=== PATIENT | female | born 1980 | race Caucasian/White ===

== ENCOUNTER → 2018-05-02 11:59 | Outpatient (CLI) | payer BC, SELFPAY ==
[2018-05-02 14:24] LABS: Absolute Lymphocyte Count 1.29 X10^3/ul (0.83-4.51); Absolute Neutrophil Count 3.3 X10^3/uL (2.0-7.7); Basophil# 0.03 X10^3/uL; Basophil% 0.6 % (0-1); Eosinophil# 0.06 X10^3/uL; Eosinophils% 1.2 % (0-5); Hematocrit 41.4 % (37-47); Hemoglobin 13.9 g/dl (12.0-15.0); Lymphocyte # 1.29 X10^3/ul (4.0); Mean Corp Hgb Conc 33.6 g/gl (32-36); Mean Corpuscular Volume 92.4 fL (81-99); Mean Platelet Vol. 10.1 fl (6.2-12.0); Monocyte# 0.51 X10^3/uL; Monocyte% 9.9 % (0-10); Neutrophil # 3.26 X10^3/uL (2.7-7.7); Neutrophil % 63.1 % (47-70); Platelet Count 253 K/mm3 (150-450); RBC Distribution Width CV 11.9 % (11.6-14.6); RBC Distribution Width SD 39.4 fl (35.1-43.9); Red Blood Count 4.48 M/mm3 (4.2-5.4); White Blood Count 5.2 K/mm3 (4.4-11.0)
[2018-05-02 14:31] LABS: POSITIVE COUNT NO; POSITIVE DIFFERENTIAL NO; POSITIVE MORPHOLOGY NO
[2018-05-02 15:29] LABS: ALB/GLOB Ratio 1.1 RATIO (0.9-2.4); AST(SGOT) 18 U/L (15-37); Alanine Aminotransfer ALT/SGPT 26 U/L (13-56); Albumin, Serum 4.1 g/dL (3.2-5.0); Alkaline Phosphatase 57 U/L (45-117); Anion Gap 8 (5-15); BUN 13 mg/dL (7-18); BUN/Creat Ratio 15.1 RATIO (10-20); Calcium,Total 9.3 mg/dL (8.5-10.1); Chloride 105 mmol/L (98-107); Creatinine, Serum 0.86 mg/dL (0.55-1.02); EST Glomerular Filtration Rate 78 mL/min (>60); Est Glom Filt Rate - Afr Amer 95 mL/min (>60); Globulin 3.8 g/dL (2.2-4.2); Glucose 83 mg/dL (74-106); Potassium 4.5 mmol/L (3.5-5.1); Protein, Total 7.9 g/dL (6.4-8.2); Sodium Level 139 mmol/L (136-145); T4 Free Direct 0.97 ng/dL (0.76-1.46)
== END ==
PROVIDERS: Family Provider Family Medicine; PCP Family Medicine; Visit Provider Nurse Practitioner Family
DX: R63.5 Abnormal weight gain (principal); L70.0 Acne vulgaris; L71.0 Perioral dermatitis
CPT/HCPCS: 36415; 80053; 84439; 84443; 85025

== ENCOUNTER → 2022-08-10 | Outpatient (CLI) | payer BC, SELFPAY ==
[2022-08-10 10:56] LABS: Vitamin D,25 Hydroxy 34.3 ng/mL
[2022-08-10 11:09] LABS: Anion Gap 6 (5-15); BUN 11 mg/dL (7-18); BUN/Creat Ratio 14.4 RATIO (10-20); Calcium,Total 9.2 mg/dL (8.5-10.1); Chloride 106 mmol/L (98-107); Cholesterol 164 mg/dL (200); Creatinine, Serum 0.76 mg/dL (0.55-1.02); EST Glomerular Filtration Rate 88 mL/min (>60); Est Glom Filt Rate - Afr Amer 107 mL/min (>60); Glucose 96 mg/dL (74-106); High Density Lipoprotein 76 mg/dL; Potassium 3.9 mmol/L (3.5-5.1); Sodium Level 138 mmol/L (136-145); Thyroid Stim Hormone (TSH) 2.36 uIU/mL (0.358-3.74); Triglycerides 95 mg/dL; Very Low Density Lipoprotein 19 mg/dL (5-40)
== END | disposition home or self-care (01) ==
PROVIDERS: PCP Family Medicine; Visit Provider Family Medicine
DX: Z13.1 Encounter for screening for diabetes mellitus (principal); Z13.21 Encounter for screening for nutritional disorder; Z13.29 Encounter for screening for other suspected endocrine disorder; Z13.220 Encounter for screening for lipoid disorders
CPT/HCPCS: 36415; 80048; 80061; 82306; 84443

== ENCOUNTER 2022-08-22 08:16 | Outpatient (CLI) | payer BC, SELFPAY ==
--- NOTE | 2022-08-22 08:18 | BI_ITS ---
MAMMOGRAPHY - BILATERAL SCREENING REASON FOR EXAM: Female, 41 years old. Routine annual screening examination. PERTINENT HISTORY: Non-contributory. TECHNIQUE: Digital bilateral breast bhavin (3D mammographic acquisition) in the CC and MLO projections. 2-D mediolateral oblique (MLO) and craniocaudad (CC) views of both breasts were obtained. CAD: Full Field Digital Mammography with Computer Added Detection was performed. COMPARISON: None. Baseline examination. FINDINGS: Breast Composition: The breasts are heterogeneously dense, which may obscure small masses. There are no dominant masses or suspicious calcifications. No other significant abnormalities are identified. BI/SCRN MAMM (CAD)W/BHAVIN BILAT IMPRESSION: Negative screening mammogram. Yearly followup mammogram recommended. (A) ASSESSMENT CATEGORY: BIRADS Category 1: Negative. A letter regarding these results will be sent to the patient by the facility within 30 days. Approximately 10% of breast cancers are not detected by mammography. A normal mammogram should not delay biopsy of a clinically suspicious abnormality. [id number] Electronically Signed: Jude Valerio MD at 10:07 EST ,
== END 2022-08-22 23:59 | disposition home or self-care (01) ==
PROVIDERS: PCP Family Medicine; Referring Provider Family Medicine; Visit Provider Family Medicine
DX: Z12.31 Encounter for screening mammogram for malignant neoplasm of breast (principal)
CPT/HCPCS: 77063; 77067

== ENCOUNTER → 2024-01-10 | Outpatient (CLI) | payer BC, SELFPAY ==
--- NOTE | 2024-01-10 09:14 | BI_ITS ---
MAMMOGRAPHY - BILATERAL SCREENING REASON FOR EXAM: Female, 43 years old. Routine annual screening examination. PERTINENT HISTORY: Non-contributory. TECHNIQUE: Digital bilateral breast bhavin (3D mammographic acquisition) in the CC and MLO projections. 2-D mediolateral oblique (MLO) and craniocaudad (CC) views of both breasts were obtained. CAD: Full Field Digital Mammography with Computer Added Detection was performed. COMPARISON: Comparison is made with prior study dated August 22, 2022. FINDINGS: Breast Composition: The breasts are heterogeneously dense, which may obscure small masses. There are no dominant masses or suspicious calcifications. No other significant abnormalities are identified. There has been no significant change since the prior study. BI/SCRN MAMM (CAD)W/BHAVIN BILAT IMPRESSION: Stable bilateral screening mammogram. Yearly follow-up mammogram recommended. (A) ASSESSMENT CATEGORY: BIRADS Category 1: Negative. A letter regarding these results will be sent to the patient by the facility within 30 days. Approximately 10% of breast cancers are not detected by mammography. A normal mammogram should not delay biopsy of a clinically suspicious abnormality. [id number] Electronically Signed: Jude Valerio MD at 11:46 EDT ,
== END | disposition home or self-care (01) ==
LOC: OPBI 09:12
PROVIDERS: PCP Family Medicine; Referring Provider Nurse Practitioner Family; Visit Provider Nurse Practitioner Family
DX: Z12.31 Encounter for screening mammogram for malignant neoplasm of breast (principal)
CPT/HCPCS: 77063; 77067

== ENCOUNTER → 2025-06-13 | Outpatient (CLI) | payer BC, SELFPAY ==
--- NOTE | 2025-06-13 13:49 | BI_ITS ---
EXAM: SCRN MAMM (CAD)W/BHAVIN BILAT DATE: 06/13/2025 CLINICAL HISTORY: F, Age 44 y/o , SCREENING No family history. TECHNIQUE: Procedure Code: [id number] Modality: MG Procedure: SCRN MAMM (CAD)W/BHAVIN BILAT COMPARISON: Prior exam(s) dated January 10, 2024.. FINDINGS: TISSUE DENSITY: The breasts are heterogeneously dense, which may obscure small masses. Bilateral Breast Mammographic Findings: Faint microcalcifications are seen in the deep central portion of the right breast on the craniocaudad view. The patient will be recalled for additional views including magnification spot views and 90 degree lateral view. BI/SCRN MAMM (CAD)W/BHAVIN BILAT IMPRESSION: Calcifications seen on the craniocaudad view in the deep central portion as melina cribed. The patient will be recalled for additional views including compression magnification views of the right breast as well as 90 degree lateral. OVERALL FINAL ASSESSMENT BI-RADS 0: INCOMPLETE - NEED ADDITIONAL IMAGING EVALUATION. RECOMMENDATION: Additional Views obtained/call backs A letter with findings and recommendations will be mailed to the patient. Reading Location: [facility]
== END | disposition home or self-care (01) ==
LOC: OPBI 13:48
PROVIDERS: PCP Family Medicine; Referring Provider Nurse Practitioner Family; Visit Provider Nurse Practitioner Family
DX: Z12.31 Encounter for screening mammogram for malignant neoplasm of breast (principal)
CPT/HCPCS: 77063; 77067

== ENCOUNTER → 2025-06-19 | Outpatient (CLI) | payer BC, SELFPAY ==
--- NOTE | 2025-06-19 09:02 | BI_ITS ---
EXAM: DIAG MAMM W/CAD, UNILAT 06/19/2025 CLINICAL HISTORY: F, Age 44 y/o , ABN MAMM. Suspicious microcalcifications. TECHNIQUE: Procedure Code: [id number] Modality: MG Procedure: DIAG MAMM W/CAD, UNILAT. Magnification spot views in the mediolateral oblique and craniocaudad projections were obtained. COMPARISON: Prior exam(s) dated June 13, 2025.. FINDINGS: TISSUE DENSITY: The breasts are heterogeneously dense, which may obscure small masses. Bilateral Breast Mammographic Findings: Persistent faint calcifications are seen in the retroareolar region of the breast. Biopsy recommended. BI/DIAG MAMM W/CAD, UNILAT IMPRESSION: Persistent faint calcification seen in the retroareolar region of the breast. OVERALL FINAL ASSESSMENT BI-RADS 4: SUSPICIOUS RECOMMENDATION: Biopsy Recommended A letter with findings and recommendations will be mailed to the patient. Reading Location: [id number]
== END | disposition home or self-care (01) ==
PROVIDERS: PCP Family Medicine; Referring Provider Nurse Practitioner Family; Visit Provider Nurse Practitioner Family
DX: R92.1 Mammographic calcification found on diagnostic imaging of breast (principal)
CPT/HCPCS: 77065

== ENCOUNTER → 2025-07-01 | Outpatient (CLI) | payer BC, SELFPAY ==
--- NOTE | 2025-07-01 11:53 | BRBX_PTH ---
PATIENT: KAI MENDEZ LOC: [facility] U#:[id number] AGE/SX: 44/F ROOM: RE07/01/[address]: Dr. Delmar Walker MD : 1980 BED: DIS: 07/01/2025 SPEC #: [id number] RECD: 07/01/25 12:00 STATUS: JUAN CLAUDETTE #: [id number] LAURA: 07/01/25 11:[address]: Delmar Walker DEPT: SURGICAL PATHOLOGY RECD BY: Ricardo Winters ENTERED: 07/01/25 12:17 SP TYPE: BREAST BX OTHR DR: Dr. Adria Hughes MD Tissues: A - Right breast, NOS Procedures: Surgery Specimen Level V HEADER OPERATION: Right stereotactic breast biopsy PRE-OP DIAGNOSIS: Right retroareolar microcalcifications TISSUE SUBMITTED: A- Right breast core tissue - Chamber #2 MICROSCOPIC DIAGNOSIS A. Breast, right, stereotactic core biopsy: * Benign breast tissue with fibrocystic mastopathy. * Rare microcalcification observed. MICROSCOPIC DESCRIPTION Slides are reviewed. Deeper sections obtained. GROSS DESCRIPTION Received fresh and subsequently placed in formalin labeled with the patient's name and date of are 4 mcpherson-yellow lobulated soft tissue cores, 2.2-2.9 cm in length by 0.4 cm in diameter. The specimen is entirely submitted in 2 cassettes, following postoperative imaging as follows: A1: Alexis #1/#2A2: Alexis #3/#4 Cold ischemic time: 14 minutesFormalin fixation time: 7 hours, 23 minutes [place] 07/01/2025 CPT:23106
--- NOTE | 2025-07-01 11:58 | PCM.OPRPT ---
Operative Report (Standard) Operative Information Date of Procedure: 07/01/25 Pre-Operative Diagnosis: Microcalcifications of the right breast Post-Operative Diagnosis: Same Surgery/Procedure Performed: Stereotactic guided core needle biopsy of the right breast horologist apprentice: No Type of Anesthesia: Local Procedure Start Time: 11:45 Procedure Stop Time: 12:00 Select all DRAINS/GRAFTS/IMPLANTS that apply: None Estimated Blood Loss: 2 Specimen collected: Yes Description of specimen(s) removed: Right breast core biopsy Description of surgery: Patient was placed in the stereotactic table and views were obtained of the right breast. The microcalcifications were identified. Stereotactic views were obtained. The microcalcifications were targeted and the skin was prepped. Skin was injected with local anesthetic and a small ambrocio was made with a scalpel. The needle was placed into the breast and fired and stereotactic views were once again obtained. Next biopsies were obtained and then the x-ray of the biopsy specimens revealed that microcalcifications were present. Next a clip was placed through the needle into the breast and the needle was then removed and another stereotactic view was obtained to show that the clip was in the biopsy cavity. Next mammogram will be obtained. Patient tolerated the procedure well. Steri-Strip and bandage were applied. Surgical Findings: Microcalcifications of the right breast Complications Complications: No
== END | disposition home or self-care (01) ==
PROVIDERS: PCP Family Medicine; Referring Provider Surgery; Visit Provider Surgery
DX: R92.0 Mammographic microcalcification found on diagnostic imaging of breast (principal)
CPT/HCPCS: 19082; 19081; 88305; 88307; A4648

== ENCOUNTER → 2025-09-19 | Outpatient (CLI) | payer BC, SELFPAY ==
[2025-09-19 13:13] LABS: Cholesterol 169 mg/dL (<=200); Low Density Lipoprotein Calc. 83 mg/dL; Triglycerides 88 mg/dL; Very Low Density Lipoprotein 18 mg/dL (5-40); Vitamin D,25 Hydroxy 28.7 ng/mL (30-100); cholesterol:hdl ratio screen 2.44
== END | disposition home or self-care (01) ==
LOC: MTLAB 10:08
PROVIDERS: PCP Family Medicine
DX: Z13.220 Encounter for screening for lipoid disorders (principal)
CPT/HCPCS: 36415; 80061; 82306; 84443